=== PATIENT | female | born 1995 | race Caucasian/White ===

== ENCOUNTER → 2016-08-09 | Outpatient (CLI) | payer OTHER ==
[2016-03-03 12:38] VITALS: BP 107/67
[~2016-08-09] MED LIST: POLY119P4 PO; SENN1TAB70 PO
--- NOTE | 2016-08-09 16:32 | RAD ---
Obstetrical ultrasound, 08/09/2016: History: Follow-up There is a single intrauterine fetus present in a cephalic orientation. The biparietal diameter measures 8.1 cm compatible with a gestational age of 32-33 weeks. The femur length measurement suggests a gestational age of 30-31 weeks. The gestational age based on all of the measurements is 31 weeks and 0 days yielding a sonographic EDC of 10/11/2016. This correlates well with the EDC of 10/18/2016 established on the previous ultrasound exam of 03/21/2016. The 10/18/2016 EDC is probably more accurate considering the stage in the at which it was obtained. The head to abdominal circumference ratio is within normal limits. Normal activity and heart motion is seen. The heart rate is 136 bpm. The stomach and bladder contain fluid. No specific abnormality is detected. The placenta lies anteriorly with extension laterally to the right. There is no evidence of a placenta previa. The amniotic fluid index was calculated at 22.9 which suggests mild polyhydramnios. The cervix was not clearly delineated, however, its length was estimated at 2.7 cm. IMPRESSION: 1. Single viable intrauterine fetus of 30-31 weeks gestational age, demonstrating normal interval growth since 03/21/2016. 2. Mild polyhydramnios. 3. Short appearing cervix measuring 2.7 cm. 4. Sonographic follow-up to include translabial scanning for better delineation of the cervix is suggested. Note: The electrophysiology technologist called these findings to the ordering physician's office at 4:20 PM on 08/09/2016.
== END | disposition home or self-care (01) ==
LOC: US 15:04
PROVIDERS: ATTEND Family Medicine
DX: Z34.93 Encounter for supervision of normal pregnancy, unspecified, third trimester (principal); O40.3XX0 Polyhydramnios, third trimester, not applicable or unspecified; Z3A.31 31 weeks gestation of pregnancy
CPT/HCPCS: 76805

== ENCOUNTER → 2016-08-30 | Outpatient (CLI) | payer OTHER ==
[2016-03-03 12:38] VITALS: BP 107/67
--- NOTE | 2016-08-30 16:54 | RAD ---
Obstetrical ultrasound-limited, 08/30/2016: History: Short cervix Transabdominal and transvaginal scans were obtained. The cervix was best delineated on the transvaginal views. The cervical length measurements range from 3.0 to 3.5 cm. No funneling of fluid into the cervical canal is seen. The fetus was not examined at this time. IMPRESSION: The cervical length is at the lower limits of normal as described above.
== END | disposition home or self-care (01) ==
LOC: US 14:50
PROVIDERS: ATTEND Family Medicine
DX: Z03.75 Encounter for suspected cervical shortening ruled out (principal)
CPT/HCPCS: 76805; 76817

== ENCOUNTER 2016-10-16 11:57 | Inpatient (IN) | payer OTHER ==
[~2016-10-16] VITALS: Ht 167.6 cm; Wt 77.6 kg
[2016-10-16] MEDS ORDERED: IV RINGERS,LACTATED 1000ML 1,000 ML IV SCH ×2 (14:54→18:43)
[2016-10-16] MEDS ORDERED: OXYTOCIN 30 UNIT/500 ML PREMIX 500 ML IV PRN (15:00)
[2016-10-16] MEDS ORDERED: TERBUTALINE 1 MG/ML VIAL. SQ PRN (15:00)
[2016-10-16] MEDS ORDERED: LIDOCAINE 1% PF 30 ML VIAL. INJ PRN (15:00)
[2016-10-16] MEDS ORDERED: 0.9 % SODIUM CHLORIDE 10 ML DISP.SYRIN. IV PRN (15:00)
[2016-10-16] MEDS ORDERED: BUTORPHANOL 2 MG VIAL. IV PRN (15:00)
[2016-10-16] MEDS ORDERED: AMPICILLIN 2 GM in IV NORMAL SALINE 100ML 100 ML IV ONE (15:30)
[2016-10-16 15:34] LABS: HEMATOCRIT 32.4 % (36.0-47.0); HEMOGLOBIN 10.8 g/dL (12.0-15.5); RED BLOOD COUNT 3.73 x10^6/uL (3.50-5.40); WHITE BLOOD COUNT 11.3 x10^3/uL (4.0-11.0)
[2016-10-16 15:47] VITALS: BP 128/74
[2016-10-16] MEDS: FENTANYL PF 100 MCG/2 ML VIAL. IV PRN ×2 (16:35→17:45)
--- NOTE | 2016-10-16 16:36 | PDOC1 ---
OB - History Hx of Present Care: Limited Care Ultrasounds: Normal mid trimester US Obstetrical Complications: None Medical Complications: None Other Concerns: Rh-, Mild oligohydramnios Past Family/Social History * Past Medical, Surgical, Family and Obstetric Histories reviewed from chart. Blood Type: A- Rubella: Immune RPR/VDRL: Negative GBS Status: Positive HBsAG: Negative OB - Chief Complaint & HPI Date of Admission: Date of Admission: Oct 16, 2016 at 11:57 Chief Complaint/History : 1 Para: 0 EDC: Oct 18, 2016 Reason for admission: active labor Admission Nurse Assessment Rev: No Problems: OB - Admission Exam Physical Exam Vitals: VS - Last 72 Hours, by Label Date Time Temp Pulse Resp B/P Pulse Ox O2 Delivery O2 Flow Rate FiO2 10/16/16 15:47 98.1 90 20 128/74 98.1 HEENT: Normal, Nasal Mucosa Normal, Oropharynx Normal, Moist Membranes, Fontanelles Normal Heart: Regular Rate Lungs: Clear, Equal Abdomen: Gravid Extremities: Normal Pulses, No tenderness or swelling Reflexes: Normal Cervical Dilatation: 4cm Effacement: Other (80%) Station: -2 Membranes: Intact Amniotic Fluid: Clear (AROM) Heart Rate: Normal Accelerations: Accelerations Present Decelerations: No decelerations Short Term Variability: Present Digital Court Reporter Variability: Moderate Contractions on Admission: 6-10 Minutes Apart Date/Time Contractions Began;: 10/16/16 Frequency of Contractions: 0830 Intensity: Moderate A/P Pt is a 20yo at 39.5wga admitted in active labor 1)Active Labor- CEFM. Pt is interested in IV pain medication 2)GBS+ Ampicillin 3)Rh negative Problems: PARAG AKBAR MD Oct 16, 2016 16:36
[2016-10-16] MEDS ORDERED: L&D EPIDURAL CASSETTE 100 ML PUMP.RESVR. EP ONE (18:00)
[2016-10-16] MEDS ORDERED: ROPIVacaine 0.2% IN 0.9%NACL PF 40 MG/20 ML DISP.SYRIN. ONE ×2 (18:00→18:08)
[2016-10-16] MEDS ORDERED: OXYTOCIN in NORMAL SALINE PREMIX 30 UNIT/500 ML BAG. IV ONE (18:00)
[2016-10-16] MEDS ORDERED: L&D EPIDURAL CASSETTE 100 ML EP ONE (18:08)
[2016-10-16] MEDS ORDERED: L&D EPIDURAL CASSETTE 100 ML EP PRN (18:45)
[2016-10-16] MEDS ORDERED: NALOXONE 0.4 MG/ML VIAL. IV PRN (18:45)
[2016-10-16] MEDS ORDERED: ROPIVacaine 0.2% IN 0.9%NACL PF 40 MG/20 ML DISP.SYRIN. EPI PRN (18:45)
[2016-10-16] MEDS ORDERED: EPHEDRINE PF IN SALINE 50 MG/5 ML DISP.SYRIN. IV PRN (18:45)
[2016-10-16] MEDS ORDERED: AMPICILLIN 1 GM in IV NORMAL SALINE 50ML 50 ML IV SCH (19:30)
--- NOTE | 2016-10-16 23:11 | PDOC ---
VAGINAL DELIVERY DATE DATE: 10/16/16 TIME 2248 : 1 Para: 1 EDC: Oct 18, 2016 EGA: 39.5 VAGINAL DELIVERY: VTX PLACENTA: Spontaneous 8/9 SEX: Male WEIGHT Weight 8 pounds 4oz, 3760g Nuchal Cord: No Amniotic Fluid: Clear PAIN: Epidural EPISIOTOMY: No EXTENSION: Yes (3rd degree perianal) REPAIRED WITH 3'0" vicryl EBL 350cc COMPLICATIONS None CONDITION Stable TRAVEL CONSULTANT Dr. Akbar Signs of Intrauterine Infectio: None Shoulder Dystocia: No DIAGNOSIS Pt is a 20yo [id number] s/p at 39.5wga 1) 2)GBS+ s/p Ampicillin 3)Rh negative Problems: PARAG AKBAR MD Oct 16, 2016 23:10
[2016-10-17] MEDS: IBUPROFEN 600 MG TABLET. PO PRN ×2 (01:55→16:45)
[2016-10-17] MEDS ORDERED: SIMETHICONE 80 MG TAB.CHEW PO PRN (02:00)
[2016-10-17] MEDS ORDERED: HYDROCORTISONE 1% TOPICAL OINTMENT 30GM TUBE. TP PRN (02:00)
[2016-10-17] MEDS ORDERED: BENZOCAINE 20% TOPICAL AEROSOL SPRAY 57GM CAN. TP PRN (02:00)
[2016-10-17] MEDS ORDERED: OXYCODONE/APAP 5/325 TABLET. PO PRN (02:00)
[2016-10-17] MEDS ORDERED: MAG HYDROX/ALUMINUM HYD/SIMETH 30 ML ORAL.SUSP PO PRN (02:00)
[2016-10-17] MEDS ORDERED: MMR per PROTOCOL. MC PRN (02:00)
[2016-10-17] MEDS ORDERED: 0.9 % SODIUM CHLORIDE 10 ML DISP.SYRIN. IV PRN (02:00)
[2016-10-17] MEDS ORDERED: ZOLPIDEM 5 MG TABLET. PO PRN (02:00)
[2016-10-17] MEDS ORDERED: DOCUSATE SODIUM 100 MG CAPSULE PO PRN (02:00)
[2016-10-17] MEDS ORDERED: MAGNESIUM HYDROXIDE 2,400 MG/30 ML ORAL.SUSP. PO PRN (02:00)
[2016-10-17] MEDS ORDERED: ACETAMINOPHEN 325 MG TABLET. PO PRN (02:00)
[2016-10-17] MEDS ORDERED: OXYTOCIN 30 UNIT/500 ML PREMIX 500 ML IV PRN (02:00)
[2016-10-17] MEDS ORDERED: PHENYLEPH/MINERAL OIL/PETROLAT RECTAL OINTMENT 28GM TUBE. RC PRN (02:00)
[2016-10-17] MEDS ORDERED: DIPHENHYDRAMINE HCL 25 MG CAPSULE PO PRN (02:00)
[2016-10-17 02:15] VITALS: BP 124/69
[2016-10-17 03:24] VITALS: BP 112/52
[2016-10-17 04:35] LABS: BASO % 0 % (0-3); EOS % 0 % (0-3); HEMATOCRIT 26.6 % (36.0-47.0); HEMOGLOBIN 8.9 g/dL (12.0-15.5); LYMPH # 1.8 x10^3/uL (1.0-4.8); LYMPH % 12 % (24-48); MEAN CORPUSCULAR HEMOGLOBIN 29 pg (25-35); MEAN CORPUSCULAR HGB CONC 34 g/dL (31-37); MEAN CORPUSCULAR VOLUME 86 fL (79-100); MONO % 10 % (0-9); NEUT % 78 % (31-73); PLATELET COUNT 160 x10^3/uL (140-400); RED BLOOD COUNT 3.08 x10^6/uL (3.50-5.40); WHITE BLOOD COUNT 15.2 x10^3/uL (4.0-11.0)
[2016-10-17] MEDS: OXYCODONE/APAP 5/325 TABLET. PO PRN (05:34)
[2016-10-17 05:40] VITALS: BP 109/53
[2016-10-17] MEDS: FERROUS SULFATE 325 MG TABLET PO SCH (08:07)
[2016-10-17 10:10] VITALS: BP 121/68
--- NOTE | 2016-10-17 15:11 | PDOC ---
OB Progress Note Date of Service 10/17/16 Time of Evaluation 1445 Date: 10/16/16 Time: 8 Notes Pt states that she is having some pain in her vaginal area. It is tolerable. Having some cramping that is tolerable. She is and not having issues; every 1.5 hours for about 10-15minutes. Vaginal bleeding is more than a period. OB VITAL SIGNS: Temperature (98.4F), Blood Pressure (121/68), Pulse (84), O2 Sat (98) Lab Laboratory Tests Test 10/16/16 15:20 10/17/16 03:38 White Blood Count 11.3x10^3/uL (4.0-11.0) 15.2x10^3/uL (4.0-11.0) Red Blood Count 3.73x10^6/uL (3.50-5.40) 3.08x10^6/uL (3.50-5.40) Hemoglobin 10.8g/dL (12.0-15.5) 8.9g/dL (12.0-15.5) Hematocrit 32.4% (36.0-47.0) 26.6% (36.0-47.0) Mean Corpuscular Volume 87fL (79-100) 86fL (79-100) Mean Corpuscular Hemoglobin 29pg (25-35) 29pg (25-35) Mean Corpuscular Hemoglobin Concent 33g/dL (31-37) 34g/dL (31-37) Red Cell Distribution Width 14.0% (11.5-14.5) 14.0% (11.5-14.5) Platelet Count 172x10^3/uL (140-400) 160x10^3/uL (140-400) RPR Titer Additional Testing Non reactive (Non Reactive) Neutrophils (%) (Auto) 78% (31-73) Lymphocytes (%) (Auto) 12% (24-48) Monocytes (%) (Auto) 10% (0-9) Eosinophils (%) (Auto) 0% (0-3) Basophils (%) (Auto) 0% (0-3) Neutrophils # (Auto) 11.9x10^3uL (1.8-7.7) Lymphocytes # (Auto) 1.8x10^3/uL (1.0-4.8) Monocytes # (Auto) 1.5x10^3/uL (0.0-1.1) Eosinophils # (Auto) 0.1x10^3/uL (0.0-0.7) Basophils # (Auto) 0.0x10^3/uL (0.0-0.2) Laboratory Tests Test 10/16/16 15:20 10/17/16 03:38 White Blood Count 11.3x10^3/uL (4.0-11.0) 15.2x10^3/uL (4.0-11.0) Red Blood Count 3.73x10^6/uL (3.50-5.40) 3.08x10^6/uL (3.50-5.40) Hemoglobin 10.8g/dL (12.0-15.5) 8.9g/dL (12.0-15.5) Hematocrit 32.4% (36.0-47.0) 26.6% (36.0-47.0) Mean Corpuscular Volume 87fL (79-100) 86fL (79-100) Mean Corpuscular Hemoglobin 29pg (25-35) 29pg (25-35) Mean Corpuscular Hemoglobin Concent 33g/dL (31-37) 34g/dL (31-37) Red Cell Distribution Width 14.0% (11.5-14.5) 14.0% (11.5-14.5) Platelet Count 172x10^3/uL (140-400) 160x10^3/uL (140-400) RPR Titer Additional Testing Non reactive (Non Reactive) Neutrophils (%) (Auto) 78% (31-73) Lymphocytes (%) (Auto) 12% (24-48) Monocytes (%) (Auto) 10% (0-9) Eosinophils (%) (Auto) 0% (0-3) Basophils (%) (Auto) 0% (0-3) Neutrophils # (Auto) 11.9x10^3uL (1.8-7.7) Lymphocytes # (Auto) 1.8x10^3/uL (1.0-4.8) Monocytes # (Auto) 1.5x10^3/uL (0.0-1.1) Eosinophils # (Auto) 0.1x10^3/uL (0.0-0.7) Basophils # (Auto) 0.0x10^3/uL (0.0-0.2) Medications Current Medications Sodium Chloride 3 ml 3 ml QSHIFT PRN IV AFTER MEDS AND BLOOD DRAWS; Start 10/16 at 15:00 Lactated Ringer's (Iv Lactated Ringers) 1,000 ml @ 125 mls/hr Q8H IV Last administered on 10/16/16 15:23; Start 10/16/16 at 14:54 Butorphanol Tartrate (Stadol) 2 mg PRN Q1HR PRN IV Severe labor pain; Start at 15:00 Fentanyl Citrate (Fentanyl 2ml Vial) 100 mcg PRN Q30MIN PRN IV Severe pain Last administered on 10/16/16 17:45; Start 10/16/16 at 15:00 Terbutaline Sulfate (Brethine) 0.25 mg 1X PRN PRN SQ SEE COMMENTS; Start at 15:00; Stop 10/17/16 at 14:59; Status DC Lidocaine HCl 30 ml 30 ml 1X PRN PRN INJ SEE COMMENTS; Start 10/16/16 at 15:00 ; Stop 10/18/16 at 14:59 Ampicillin Sodium 2 gm/Sodium Chloride 100 ml @ 200 mls/hr 1X ONCE IV Last administered on 10/16/16 15:20; Start 10/16/16 at 15:30; Stop 10/16/16 at 15:59 ; Status DC Ampicillin Sodium 1 gm/Sodium Chloride 50 ml @ 100 mls/hr Q4H IV Last administered on 10/16/16 19:43; Start 10/16/16 at 19:30 Oxytocin/Sodium Chloride (Oxytocin Premix Infusion) 500 ml @ 0 mls/hr CONT PRN PRN IV Post delivery bleeding; Start 10/16/16 at 15:00 Ibuprofen 600 mg 600 mg PRN Q6HRS PRN PO PAIN Last administered on 10/17/16 01 :55; Start 10/16/16 at 15:00 Ropivacaine/ Fentanyl/NS (Fsnsflla-Vmjja-OE 3 Mcg-0.1%) 100 ml @ As Directed STK-MED ONCE EP ; Start 10/16/16 at 18:08; Stop 10/16/16 at 18:09; Status DC Ropivacaine 40 mg 40 mg STK-MED ONCE .ROUTE ; Start 10/16/16 at 18:08; Stop at 18:09; Status DC Ropivacaine/ Fentanyl/NS 100 ml @ 14 mls/hr CONT PRN EP PAIN; Start 10/16/16 at 18:45; Stop 10/17/16 at 17:44 Lactated Ringer's (Iv Lactated Ringers) 1,000 ml @ 125 mls/hr Q8H IV Last administered on 10/16/16t 19:04; Start 10/16/16 at 18:43 Ephedrine Sulfate 10 mg PRN Q2MIN PRN IV IF SBP<90; Start 10/16/16 at 18:45 Naloxone HCl (Narcan) 0.04 mg PRN Q1MIN PRN IV SEE COMMENTS; Start 10/16/16 at 18:45 Ropivacaine 40 mg PRN 1X PRN EPI SEE COMMENTS; Start 10/16/16 at 18:45 Sodium Chloride 10 ml 10 ml QSHIFT PRN IV AFTER MEDS AND BLOOD DRAWS; Start at 02:00 Oxytocin/Sodium Chloride (Oxytocin Premix Infusion) 500 ml @ 62.5 mls/hr CONT PRN IV SEE I/O RECORD; Start 10/17/16 at 02:00; Stop 10/17/16 at 09:59; Status DC Acetaminophen (Tylenol) 650 mg PRN Q6HRS PRN PO MILD PAIN / TEMP; Start at 02:00 Docusate Sodium (Colace) 100 mg PRN BID PRN PO CONSTIPATION; Start 10/17/16 at 02:00 Magnesium Hydroxide (Milk Of Magnesia) 2,400 mg PRN DAILY PRN PO CONSTIPATION; Start 10/17/16 at 02:00 Al Hydroxide/Mg Hydroxide (Mylanta Plus Xs) 30 ml PRN Q4HRS PRN PO HEARTBURN / GAS; Start 10/17/16 at 02:00 Simethicone (Gas-X) 80 mg PRN AFTMEALHC PRN PO GAS / BLOATING; Start 10/17/16 at 02:00 Diphenhydramine HCl (Benadryl) 25 mg PRN Q6HRS PRN PO ITCHING; Start 10/17/16 at 02:00 Benzocaine (Americaine) 1 spray PRN QID PRN TP TOPICAL PAIN; Start 10/17/16 at 02:00 Phenyleph/Shark Oil/Min Oil/Petrol (Preparation H) 1 quita PRN QID PRN RC RECTAL PAIN; Start 10/17/16 at 02:00 Hydrocortisone (Cortaid) 1 quita PRN QID PRN TP PERINEAL PAIN; Start 10/17/16 at 02:00 Ferrous Sulfate (Feosol) 325 mg BIDWMEALS PO Last administered on 10/17/16t 08: 07; Start 10/18/16 at 08:00 Zolpidem Tartrate (Ambien) 5 mg PRN QHS PRN PO INSOMNIA, MAY REPEAT X1; Start 10/17/16 at 02:00 Info (Do NOT chart on this placeholder) 1 ea 1X PRN PRN MC SEE COMMENTS; Start 10/17/16 at 02:00 Info (Do NOT chart on this placeholder) 1 ea 1X PRN PRN MC SEE COMMENTS; Start 10/17/16 at 02:00 Oxycodone/ Acetaminophen (Percocet 5/325) 1 tab PRN Q4HRS PRN PO MILD PAIN Last administered on 10/17/16t 05:34; Start 10/17/16 at 02:00 Oxycodone/ Acetaminophen (Percocet 5/325) 2 tab PRN Q4HRS PRN PO MODERATE PAIN , SEVERE PAIN; Start 10/17/16 at 02:00; Stop 10/17/16 at 14:52; Status DC Ropivacaine 40 mg STK-MED ONCE .ROUTE ; Start 10/16/16 at 18:00; Stop 10/17/16 at 08:04; Status DC Ropivacaine/ Fentanyl/NS (Drlfxzfp-Mtpyg-TG 3 Mcg-0.1%) 100 ml STK-MED ONCE EP ; Start 10/16/16 at 18:00; Stop 10/17/16 at 08:15; Status DC Oxytocin/Sodium Chloride (Oxytocin Premix Infusion) 30 unit STK-MED ONCE IV ; Start 10/16/16 at 18:00; Stop 10/17/16 at 08:15; Status DC Active Scripts Active Miralax (Polyethylene Glycol 3350) 119 Gm Powder 17 Gm PO DAILY PRN Reported Stool Softener Tablet (Sennosides/Docusate Sodium) 1 Each Tablet 1 Each PO BID Exam GEN: NAD, AOx3 HEENT: MMM, EOMI, no scleral icterus/injection Cardiac: RRR, no M/R/G Lungs: CTAB, regular breathing rate and effort Abd: NTTP Ext: no erythema/edema LE bilaterally : 3rd degree perianal laceration healing well Assessment Pt is a 20yo [id number] s/p at 39.5wga 1)- pt receiving Ibuprofen and Oxycodone/APAP for pain 2)GBS+ s/p Ampicillin 3)Rh negative- will receive Rhogam prior to discharge 4)3rd degree perianal laceration- f/u 2 weeks 5)Anemia- pt receiving Ferrous Sulfate 6)Leukocytosis- pt afebrile and has no signs of infection. CTM 7) PARAG AKBAR MD Oct 17, 2016 15:11
[2016-10-17] MEDS ORDERED: POLYETHYLENE GLYCOL 3350 17 GM PACKET. PO PRN (15:15)
[2016-10-17 16:45] VITALS: BP 118/64
[2016-10-17 23:28] VITALS: BP 116/76
[2016-10-18] MEDS: IBUPROFEN 600 MG TABLET. PO PRN ×2 (01:10→13:56)
[2016-10-18 06:44] VITALS: BP 117/78
[2016-10-18 13:21] VITALS: BP 112/68
--- NOTE | 2016-10-18 17:02 | PDOC ---
OB Progress Note Date of Service 10/18/16 Time of Evaluation 1630 Date: 10/16/16 Time: 8 Notes Pt had a blood clot about the size of a quarter earlier today. Her bleeding is still more than a period but better than yesterday. She is concerned that she is not producing enough milk; reassured mom that her milk will likely come in in the next 24-48 hours. OB VITAL SIGNS: Temperature (98.3F), Blood Pressure (112/68), Pulse (82), O2 Sat (98%) Lab Laboratory Tests Test 10/17/16 03:38 White Blood Count 15.2x10^3/uL (4.0-11.0) Red Blood Count 3.08x10^6/uL (3.50-5.40) Hemoglobin 8.9g/dL (12.0-15.5) Hematocrit 26.6% (36.0-47.0) Mean Corpuscular Volume 86fL (79-100) Mean Corpuscular Hemoglobin 29pg (25-35) Mean Corpuscular Hemoglobin Concent 34g/dL (31-37) Red Cell Distribution Width 14.0% (11.5-14.5) Platelet Count 160x10^3/uL (140-400) Neutrophils (%) (Auto) 78% (31-73) Lymphocytes (%) (Auto) 12% (24-48) Monocytes (%) (Auto) 10% (0-9) Eosinophils (%) (Auto) 0% (0-3) Basophils (%) (Auto) 0% (0-3) Neutrophils # (Auto) 11.9x10^3uL (1.8-7.7) Lymphocytes # (Auto) 1.8x10^3/uL (1.0-4.8) Monocytes # (Auto) 1.5x10^3/uL (0.0-1.1) Eosinophils # (Auto) 0.1x10^3/uL (0.0-0.7) Basophils # (Auto) 0.0x10^3/uL (0.0-0.2) Medications Current Medications Sodium Chloride 3 ml 3 ml QSHIFT PRN IV AFTER MEDS AND BLOOD DRAWS; Start 10/16 at 15:00; Stop 10/18/16 at 09:23; Status DC Lactated Ringer's (Iv Lactated Ringers) 1,000 ml @ 125 mls/hr Q8H IV Last administered on 10/16/16 15:23; Start 10/16/16 at 14:54; Stop 10/18/16 at 09:23 ; Status DC Butorphanol Tartrate (Stadol) 2 mg PRN Q1HR PRN IV Severe labor pain; Start at 15:00; Stop 10/18/16 at 09:23; Status DC Fentanyl Citrate (Fentanyl 2ml Vial) 100 mcg PRN Q30MIN PRN IV Severe pain Last administered on 10/16/16 17:45; Start 10/16/16 at 15:00; Stop 10/18/16 at 09:23; Status DC Terbutaline Sulfate (Brethine) 0.25 mg 1X PRN PRN SQ SEE COMMENTS; Start at 15:00; Stop 10/17/16 at 14:59; Status DC Lidocaine HCl 30 ml 30 ml 1X PRN PRN INJ SEE COMMENTS; Start 10/16/16 at 15:00 ; Stop 10/18/16 at 09:23; Status DC Ampicillin Sodium 2 gm/Sodium Chloride 100 ml @ 200 mls/hr 1X ONCE IV Last administered on 10/16/16 15:20; Start 10/16/16 at 15:30; Stop 10/16/16 at 15:59 ; Status DC Ampicillin Sodium 1 gm/Sodium Chloride 50 ml @ 100 mls/hr Q4H IV Last administered on 10/16/16 19:43; Start 10/16/16 at 19:30; Stop 10/18/16 at 09:23 ; Status DC Oxytocin/Sodium Chloride (Oxytocin Premix Infusion) 500 ml @ 0 mls/hr CONT PRN PRN IV Post delivery bleeding; Start 10/16/16 at 15:00; Stop 10/18/16 at 09:23; Status DC Ibuprofen 600 mg 600 mg PRN Q6HRS PRN PO PAIN Last administered on 10/18/16 13 :56; Start 10/16/16 at 15:00 Ropivacaine/ Fentanyl/NS (Lolvcfzd-[place] 3 Mcg-0.1%) 100 ml @ As Directed STK-MED ONCE EP ; Start 10/16/16 at 18:08; Stop 10/16/16 at 18:09; Status DC Ropivacaine 40 mg 40 mg STK-MED ONCE .ROUTE ; Start 10/16/16 at 18:08; Stop at 18:09; Status DC Ropivacaine/ Fentanyl/NS 100 ml @ 14 mls/hr CONT PRN EP PAIN; Start 10/16/16 at 18:45; Stop 10/17/16 at 17:44; Status DC Lactated Ringer's (Iv Lactated Ringers) 1,000 ml @ 125 mls/hr Q8H IV Last administered on 10/16/16t 19:04; Start 10/16/16 at 18:43; Stop 10/18/16 at 09:23 ; Status DC Ephedrine Sulfate 10 mg PRN Q2MIN PRN IV IF SBP<90; Start 10/16/16 at 18:45; Stop 10/18/16 at 09:23; Status DC Naloxone HCl (Narcan) 0.04 mg PRN Q1MIN PRN IV SEE COMMENTS; Start 10/16/16 at 18:45; Stop 10/18/16 at 09:23; Status DC Ropivacaine 40 mg PRN 1X PRN EPI SEE COMMENTS; Start 10/16/16 at 18:45; Stop at 09:23; Status DC Sodium Chloride 10 ml 10 ml QSHIFT PRN IV AFTER MEDS AND BLOOD DRAWS; Start at 02:00; Stop 10/18/16 at 09:23; Status DC Oxytocin/Sodium Chloride (Oxytocin Premix Infusion) 500 ml @ 62.5 mls/hr CONT PRN IV SEE I/O RECORD; Start 10/17/16 at 02:00; Stop 10/17/16 at 09:59; Status DC Acetaminophen (Tylenol) 650 mg PRN Q6HRS PRN PO MILD PAIN / TEMP; Start at 02:00 Docusate Sodium (Colace) 100 mg PRN BID PRN PO CONSTIPATION; Start 10/17/16 at 02:00 Magnesium Hydroxide (Milk Of Magnesia) 2,400 mg PRN DAILY PRN PO CONSTIPATION; Start 10/17/16 at 02:00 Al Hydroxide/Mg Hydroxide (Mylanta Plus Xs) 30 ml PRN Q4HRS PRN PO HEARTBURN / GAS; Start 10/17/16 at 02:00 Simethicone (Gas-X) 80 mg PRN AFTMEALHC PRN PO GAS / BLOATING; Start 10/17/16 at 02:00 Diphenhydramine HCl (Benadryl) 25 mg PRN Q6HRS PRN PO ITCHING; Start 10/17/16 at 02:00 Benzocaine (Americaine) 1 spray PRN QID PRN TP TOPICAL PAIN; Start 10/17/16 at 02:00 Phenyleph/Shark Oil/Min Oil/Petrol (Preparation H) 1 quita PRN QID PRN RC RECTAL PAIN; Start 10/17/16 at 02:00; Stop 10/18/16 at 09:23; Status DC Hydrocortisone (Cortaid) 1 quita PRN QID PRN TP PERINEAL PAIN; Start 10/17/16 at 02:00 Ferrous Sulfate (Feosol) 325 mg BIDWMEALS PO Last administered on 10/17/16t 08: 07; Start 10/18/16 at 08:00 Zolpidem Tartrate (Ambien) 5 mg PRN QHS PRN PO INSOMNIA, MAY REPEAT X1; Start 10/17/16 at 02:00 Info (Do NOT chart on this placeholder) 1 ea 1X PRN PRN MC SEE COMMENTS; Start 10/17/16 at 02:00; Stop 10/18/16 at 09:23; Status DC Info (Do NOT chart on this placeholder) 1 ea 1X PRN PRN MC SEE COMMENTS; Start 10/17/16 at 02:00; Stop 10/18/16 at 09:23; Status DC Oxycodone/ Acetaminophen (Percocet 5/325) 1 tab PRN Q4HRS PRN PO MILD PAIN Last administered on 10/17/16t 05:34; Start 10/17/16 at 02:00 Oxycodone/ Acetaminophen (Percocet 5/325) 2 tab PRN Q4HRS PRN PO MODERATE PAIN , SEVERE PAIN; Start 10/17/16 at 02:00; Stop 10/17/16 at 14:52; Status DC Ropivacaine 40 mg STK-MED ONCE .ROUTE ; Start 10/16/16 at 18:00; Stop 10/17/16 at 08:04; Status DC Ropivacaine/ Fentanyl/NS (Ybrmxjez-Szyrx-UA 3 Mcg-0.1%) 100 ml STK-MED ONCE EP ; Start 10/16/16 at 18:00; Stop 10/17/16 at 08:15; Status DC Oxytocin/Sodium Chloride (Oxytocin Premix Infusion) 30 unit STK-MED ONCE IV ; Start 10/16/16 at 18:00; Stop 10/17/16 at 08:15; Status DC Polyethylene Glycol (miraLAX PACKET) 17 gm PRN DAILY PRN PO CONSTIPATION; Start 10/17/16 at 15:15; Stop 10/18/16 at 09:23; Status DC Active Scripts Active Miralax (Polyethylene Glycol 3350) 119 Gm Powder 17 Gm PO DAILY PRN Reported Stool Softener Tablet (Sennosides/Docusate Sodium) 1 Each Tablet 1 Each PO BID Exam GEN: NAD, AOx3 HEENT: MMM, EOMI, no scleral icterus/injection Cardiac: RRR, no M/R/G Lungs: CTAB, regular breathing rate and effort Abd: NTTP Ext: no erythema/edema LE bilaterally : 3rd degree perianal laceration healing well Assessment Pt is a 20yo [id number] s/p at 39.5wga 1)- pt receiving Ibuprofen and Oxycodone/APAP for pain 2)GBS+ s/p Ampicillin 3)Rh negative- will receive Rhogam prior to discharge 4)3rd degree perianal laceration- f/u 2 weeks 5)Anemia- pt receiving Ferrous Sulfate 6)Leukocytosis- pt afebrile and has no signs of infection. CTM 7) PARAG AKBAR MD Oct 18, 2016 17:02
[2016-10-18 17:25] VITALS: BP 117/69
[2016-10-18] MEDS: POLYETHYLENE GLYCOL 3350 17 GM PACKET. PO SCH (19:52)
[2016-10-18 23:07] VITALS: BP 120/78
[2016-10-19 06:21] VITALS: BP 117/78
[2016-10-19] MEDS: IBUPROFEN 600 MG TABLET. PO PRN (08:56)
[2016-10-19] MEDS: OXYCODONE/APAP 5/325 TABLET. PO PRN ×2 (08:56→15:20)
[2016-10-19] MEDS: POLYETHYLENE GLYCOL 3350 17 GM PACKET. PO SCH (08:56)
[2016-10-19 09:46] VITALS: BP 114/61
[2016-10-19 09:54] VITALS: BP 114/61
[2016-10-19 14:45] VITALS: BP 116/72
[2016-10-19] MEDS ORDERED: FERR325T72 PO (14:55)
[2016-10-19] MEDS ORDERED: IBUP-1007 PO (14:55)
[2016-10-19] MEDS ORDERED: OXYC1TAB7 PO (14:55)
--- NOTE | 2016-10-19 15:00 | PDOC3 ---
OB DISCHARGE SUMMARY DATE OF ADMISSION: 10/16/16 DATE OF DISCHARGE: 10/19/16 REASON FOR ADMISSION: Onset of labor PROCEDURES: Ultrasound PROCEDURES: RHO (D) IG PROBLEM LIST AT DISCHARGE Problems Medical Problems: (1) Vaginal delivery Status: Acute DISCHARGE DIAGNOSIS: Term Delivered DISCHARGE INFORMATION: Activity (as tolerated), Diet (Reguler), Medications ( Ibuprofen, Oxycodone/Acetaminophen 5/325mg, Miralax), Instructions (Please follow up with Dr. Akbar in 2 weeks to re-evaluate your laceration repair. Please consider different control options), Discharge to (Home), Accompanied By (Father of baby) HOSPITAL COURSE Exam GEN: NAD, AOx3 HEENT: MMM, EOMI, no scleral icterus/injection Cardiac: RRR, no M/R/G Lungs: CTAB, regular breathing rate and effort Abd: NTTP Ext: no erythema/edema LE bilaterally : 3rd degree perianal laceration healing well Pt is a 20yo [id number] s/p at 39.5wga 1)- pt receiving Ibuprofen and Oxycodone/APAP for pain 2)GBS+ s/p Ampicillin 3)Rh negative- received Rhogam prior to discharge 4)3rd degree perianal laceration- f/u 2 weeks 5)Anemia- pt receiving Ferrous Sulfate 6)Leukocytosis- pt afebrile and has no signs of infection 7) 8) control- pt interested in BTL at this time. Discussed considering different options, such as Mirena. Will investigate further at next visit. PARAG AKBAR MD Oct 19, 2016 15:00
[2016-10-19] MEDS: FERROUS SULFATE 325 MG TABLET PO SCH (15:21)
[2016-10-19 15:35] VITALS: BP 115/65
== END 2016-10-19 15:55 | disposition home or self-care (01) | DRG 775 ==
LOC: OBSVTOIN 11:57 → 3 SO LND 11:57
PROVIDERS: ADMIT Family Medicine; ATTEND Family Medicine
PROC: 10907ZC Drainage of Amniotic Fluid, Therapeutic from Products of Conception, Via Natural or Artificial Opening (ICD-10-PCS; principal; 2016-10-16)
PROC: 10E0XZZ Delivery of Products of Conception, External Approach (ICD-10-PCS; 2016-10-16)
PROC: 0DQR0ZZ Repair Anal Sphincter, Open Approach (ICD-10-PCS; 2016-10-16)
PROC: 3E0S3CZ (ICD-10-PCS; 2016-10-16)
PROC: 00HU33Z Insertion of Infusion Device into Spinal Canal, Percutaneous Approach (ICD-10-PCS; 2016-10-16)
PROC: 30233S1 Transfusion of Nonautologous Globulin into Peripheral Vein, Percutaneous Approach (ICD-10-PCS; 2016-10-19)
DX: O41.03X0 Oligohydramnios, third trimester, not applicable or unspecified (principal); O99.12 Other diseases of the blood and blood-forming organs and certain disorders involving the immune mechanism complicating childbirth; O70.20 Third degree perineal laceration during delivery, unspecified; Z3A.39 39 weeks gestation of pregnancy; Z37.0 Single live birth; O99.824 Streptococcus B carrier state complicating childbirth; O99.02 Anemia complicating childbirth; D72.829 Elevated white blood cell count, unspecified; Z88.1 Allergy status to other antibiotic agents; Z88.0 Allergy status to penicillin
CPT/HCPCS: 36415; 85027; 85461; 86593; 86850; 86900; 86901; G0378; J0290; J2590; J2791; J2795; J3010; J7120

== ENCOUNTER → 2019-01-26 | Outpatient (CLI) | payer OTHER ==
[~2019-01-26] MED LIST changes: +FERR325T72 PO; +IBUP-1007 PO; +OXYC1TAB7 PO
--- NOTE | 2019-01-26 17:15 | KCIC ---
First trimester ultrasound less than 14 weeks: Clinical indications: Vaginal bleeding one week ago. Findings: Transabdominal study: Uterus is anteverted in position. Within the upper aspect of the uterus, a gestational sac is seen containing a single fetus. heart rate is 153 bpm. Yolk sac is identified. [place]-rump length is 1.04 cm which corresponds to gestational age of 7 weeks 1 day with an EDC of September 13, 2019. Sac shape and amniotic fluid volume: Normal. Placenta location: Indeterminate due to the early stage of gestation. Cervical length: Greater than 3.0 cm. Extrachorionic hemorrhage: There is an inferior subchorionic hemorrhage measuring 27 mm x 9 mm x 20 mm in size. Uterus: No uterine fibroids are seen. Maternal ovaries: Right ovary: 2.6 cm x 1.2 cm x 3.0 cm. Normal. Color-flow Doppler: Present Left ovary: 3.2 cm x 3.3 cm x 1.5 cm. Normal. Color-flow Doppler: Present Adnexa: no adnexal masses are seen. Free fluid: None. Impression: Single intrauterine gestation with approximate gestational age of 7 weeks and 1 day. 27 mm subchorionic hemorrhage. Electronically signed by: Justin Maria MD (01/26/2019 5:12 PM) [id number]
== END | disposition home or self-care (01) ==
LOC: KCIC US 15:17
PROVIDERS: ATTEND Family Medicine
DX: O46.91 Antepartum hemorrhage, unspecified, first trimester (principal); Z3A.01 Less than 8 weeks gestation of pregnancy
CPT/HCPCS: 76801

== ENCOUNTER 2019-03-09 15:56 | Emergency (ER) | payer MEDICAID, OTHER ==
[~2019-03-09] VITALS: Ht 167.6 cm; Wt 68.0 kg
--- NOTE | 2019-03-09 17:42 | RAD ---
Obstetric pelvic ultrasound March 09, 2019 INDICATION: Leaking clear fluid. LMP 12/05/2018 COMPARISON: Ultrasound pelvis January 26, 2019 TECHNIQUE: Sonographic evaluation of the pelvis was performed utilizing grayscale, color Doppler and spectral waveform analysis. FINDINGS: Uterus measures 13.8 x 9.7 x 6.2 cm. Single intrauterine gestation is identified with heart tones measuring 160 bpm. Cervical length measures 3.7 cm. There is no free fluid within the cul-de-sac. Gestational sac is visualized. Embryo is identified with crown-rump length measuring 7.1 cm compatible with a gestational age of 13 weeks and 2 days. Estimated sonographic EDC is 09/12/2019. Previously seen hemorrhage has resolved. Amniotic fluid appears to be within normal limits. LMP: 12/05/2018 EDC: 09/11/2019 Right ovary measures 2.4 x 3.2 x 1.6 cm. Left ovary measures 3.3 x 2.6 x 2.1 cm. Arterial and venous waveform identified bilaterally at the time of imaging. No suspicious adnexal mass. IMPRESSION: Viable intrauterine gestation is identified with crown-rump length compatible with a gestational age of 13 weeks 2 days, concordant with LMP. Resolved previously seen subchorionic hemorrhage. If there is persistent clinical concern, short-term follow-up pelvic ultrasound may be of benefit. Electronically signed by: Sunita Reid MD (03/09/2019 5:40 PM) [facility]
[2019-03-09] MEDS ORDERED: IV NORMAL SALINE 1000ML BAG 1,000 ML IV ONE (17:45)
[2019-03-09 17:48] VITALS: BP 134/71
--- NOTE | 2019-03-09 17:58 | PHYS DOC ---
Past Medical History Past Medical History: Constipation, Other Additional Past Medical Histor: SYNCOPE, hypotension (ELIO WOOD APRN) Past Surgical History: Tonsillectomy (ELIO WOOD APRN) Alcohol Use: None Drug Use: None (ELIO WOOD APRN) Adult General Chief Complaint Chief Complaint: ABDOMINAL PAIN IN HPI HPI Patient is a 23 year old female, accompanied by her significant other, who presents to the emergency Department today with concerns of leaking clear fluid from her vagina. Patient states she is her last menstrual period was the last week of November, patient is 2, para 1. She is unsure of when her due date is. ROS She currently denies any abdominal pain, irregular vaginal odor, vaginal bleeding, pelvic pain, fever, cough, shortness of breath, diarrhea, or headache. She states she has had some constipation, but denies rectal bleeding. She denies any rectal discomfort at this time. (ELIO WOOD APRN) Review of Systems Review of Systems Constitutional: Denies fever or chills [] Eyes: Denies change in visual acuity, redness, or eye pain [] HENT: Denies nasal congestion or sore throat [] Respiratory: Denies cough or shortness of breath [] Cardiovascular: No additional information not addressed in HPI [] GI: Denies abdominal pain, nausea, vomiting, bloody stools or diarrhea [] : Denies dysuria or hematuria [] Musculoskeletal: Denies back pain or joint pain [] Integument: Denies rash or skin lesions [] Neurologic: Denies headache, focal weakness or sensory changes [] Endocrine: Denies polyuria or polydipsia [] All other systems were reviewed and found to be within normal limits, except as documented in this note. (ELIO WOOD APRN) Current Medications Current Medications Current Medications Medications (Trade) Dose Ordered Sig/Naila Start Time Stop Time Status Last Admin Dose Admin Sodium Chloride 1,000 ml @ 1,000 mls/hr 1X ONCE 03/09/19 17:45 03/09/19 18:44 DC 03/09/19 17:45 1,000 MLS/HR (ROEL BRIZUELA MD) Allergies Allergies Allergies Coded Allergies Type Severity Reaction Last Updated Verified amoxicillin Adverse Reaction Intermediate nausea and vomiting 10/17/16 Yes cephalexin Adverse Reaction Intermediate nausea and vomitng 03/03/16 Yes clavulanic acid Adverse Reaction Intermediate nausea and vomiting 10/17/16 Yes (ROEL BRIZUELA MD) Physical Exam Physical Exam Constitutional: Well developed, well nourished, no acute distress, non-toxic appearance. [] HENT: Normocephalic, atraumatic, bilateral external ears normal, nose normal. [] Eyes: PERRLA, EOMI, conjunctiva normal, no discharge. [] Neck: Normal range of motion, no stridor. [] Cardiovascular:Heart rate regular rhythm, no murmur [] Lungs & Thorax: Bilateral breath sounds clear to auscultation [] Abdomen: Bowel sounds normal, soft, no tenderness, no masses, no pulsatile masses. [] Skin: Warm, dry, no erythema, no rash. [] Extremities: No cyanosis, ROM intact, no edema. [] Neurologic: Alert and oriented X 3, no focal deficits noted. [] Psychologic: Affect normal, judgement normal, mood normal. [] (ELIO WOOD APRN) Current Patient Data Vital Signs Vital Signs Date Time Temp Pulse Resp B/P (MAP) Pulse Ox O2 Delivery O2 Flow Rate FiO2 03/09/19 17:48 87 14 134/71 (92) 98 Room Air 03/09/19 16:03 99.2 99.2 (ROEL BRIZUELA MD) Lab Values Laboratory Tests Test 03/09/19 17:49 03/09/19 17:52 Urine Collection Type Void Urine Color Yellow Urine Clarity Turbid Urine pH 8.0 Urine Specific [place] 1.020 Urine Protein Negative mg/dL (NEG-TRACE) Urine Glucose (UA) Negative mg/dL (NEG) Urine Ketones (Stick) Negative mg/dL (NEG) Urine Blood Negative (NEG) Urine Nitrite Negative (NEG) Urine Bilirubin Negative (NEG) Urine Urobilinogen Dipstick 1.0 mg/dL (0.2 mg/dL) Urine Leukocyte Esterase Large (NEG) Urine RBC 0 /HPF (0-2) Urine WBC 1-4 /HPF (0-4) Urine Squamous Epithelial Cells Mod /LPF Urine Amorphous Sediment Present /HPF Urine Bacteria Few /HPF (0-FEW) Urine Mucus Slight /LPF POC Urine HCG, Qualitative Hcg positive (Negative) (ROEL BRIZUELA MD) EKG EKG [] (ELIO WOOD APRN) Radiology/Procedures Radiology/Procedures PROCEDURE: PREG 1ST TRIMESTER Obstetric pelvic ultrasound March 09, 2019 INDICATION: Leaking clear fluid. LMP 12/05/2018 COMPARISON: Ultrasound pelvis January 26, 2019 TECHNIQUE: Sonographic evaluation of the pelvis was performed utilizing grayscale, color Doppler and spectral waveform analysis. FINDINGS: Uterus measures 13.8 x 9.7 x 6.2 cm. Single intrauterine gestation is identified with heart tones measuring 160 bpm. Cervical length measures 3.7 cm. There is no free fluid within the cul-de-sac. Gestational sac is visualized. Embryo is identified with crown-rump length measuring 7.1 cm compatible with a gestational age of 13 weeks and 2 days. Estimated sonographic EDC is 09/12/2019. Previously seen hemorrhage has resolved. Amniotic fluid appears to be within normal limits. LMP: 12/05/2018 EDC: 09/11/2019 Right ovary measures 2.4 x 3.2 x 1.6 cm. Left ovary measures 3.3 x 2.6 x 2.1 cm. Arterial and venous waveform identified bilaterally at the time of imaging. No suspicious adnexal mass. IMPRESSION: Viable intrauterine gestation is identified with crown-rump length compatible with a gestational age of 13 weeks 2 days, concordant with LMP. Resolved previously seen subchorionic hemorrhage. If there is persistent clinical concern, short-term follow-up pelvic ultrasound may be of benefit. [] (ELIO WOOD APRN) Course & Med Decision Making Course & Med Decision Making Pertinent Labs and Imaging studies reviewed. (See chart for details) dx: IUP, hyperemesis gravidarum Patient is a 23-year-old female who presented to the emergency department for concerns of leaking fluid. She reported that her primary care doctor sent her to the hospital for evaluation to be sure that her amniotic fluid was not leaking. Bedside heart tones were in the 180s, an ultrasound revealed normal amniotic fluid levels. [id number] Belen Contreras who reports that the pt came to the office for hyperemesis gravidarum also. Dr. 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 Dr. Contreras would like 1L of fluid to be given to the patient while she is in the ER. Okay to discharge patient if the ultrasound is normal. Have patient follow-up with Dr. Contreras later this week in office. 1800- report to Dr. Brizuela advised of pending UA results. If negative for UTI pt is ok to go home and follow up with Dr. Contreras later this week. (ELIO WOOD APRN) Course & Med Decision Making u/a neg (ROEL BRIZUELA MD) Dragon Disclaimer Dragon Disclaimer This electronic medical record was generated, in whole or in part, using a voice recognition dictation system. (ELIO WOOD APRN) Departure Departure Referrals: PARAG CONTRERAS MD (PCP) ELIO WOOD APRN Mar 09, 2019 17:58 ROEL BRIZUELA MD Mar 10, 2019 00:35
[2019-03-09 18:02] LABS: BILIRUBIN,URINE NEGATIVE (NEG); CLARITY,URINE TURBID; COLOR,URINE YELLOW; NITRITE,URINE NEGATIVE (NEG); PROTEIN,URINE NEGATIVE (NEG-TRACE)
[2019-03-09 18:19] LABS: AMORPHOUS SEDIMENT,UR PRESENT /HPF; BACTERIA,URINE FEW /HPF (0-FEW); RBC,URINE 0 /HPF (0-2); SQUAMOUS EPITHELIAL CELL,UR MOD /LPF
== END 2019-03-09 19:11 | disposition home or self-care (01) ==
LOC: ER 15:56
DX: O21.0 Mild hyperemesis gravidarum (principal); Z3A.13 13 weeks gestation of pregnancy; Z88.1 Allergy status to other antibiotic agents; Z88.8 Allergy status to other drugs, medicaments and biological substances
CPT/HCPCS: 76801; 81001; 81025; 87086; 96360; 99285; J7030

== ENCOUNTER → 2019-05-07 | Outpatient (CLI) | payer MEDICAID ==
--- NOTE | 2019-05-07 16:51 | KCIC ---
EXAM: Obstetrics sonogram. HISTORY: anatomy survey. TECHNIQUE: Sonographic imaging of a gravid uterus was performed. COMPARISON: 12/10/2018. FINDINGS: There is a single intrauterine fetus in cephalic presentation with a heart rate of 135 bpm. There is body motion. There is an anterior placenta without evidence of placenta previa. The amniotic fluid axes normal at 13.2 cm. The cervix is closed and measures 4.75 cm. The biparietal diameter is 4.60 cm, corresponding with 19 weeks and 6 days. The head circumference is 18.34 cm, corresponding with 20 weeks and 5 days. The abdominal circumference is 16.01 cm, corresponding with 21 weeks and 1 day. The femoral length is 3.66 cm, corresponding with 21 weeks and 4 days. The estimated gestational age based on combined ultrasound measurements is 20 weeks and 6 days and the estimated weight is 409 g. The estimated due date is 09/18/2019. The brain, spine, stomach, kidneys, bladder, extremities are unremarkable. There is a three-vessel umbilical cord. The cardiac outflow tracts and facial profile are not well seen due to presentation. IMPRESSION: 1. Single intrauterine fetus with an estimated gestational age of 20 weeks and 6 days and heart rate of 135 bpm. 2. Suboptimal evaluation of the facial profile and cardiac outflow tracts due to presentation. Short-term follow-up can be performed to complete an otherwise unremarkable anatomy survey. Electronically signed by: Juany Winn MD (05/07/2019 4:49 PM) [facility]
== END | disposition home or self-care (01) ==
LOC: KCIC US 15:15
PROVIDERS: ATTEND Family Medicine
DX: O26.892 Other specified pregnancy related conditions, second trimester (principal); Z3A.20 20 weeks gestation of pregnancy
CPT/HCPCS: 76805

== ENCOUNTER → 2019-07-13 | Outpatient (CLI) | payer MEDICAID ==
--- NOTE | 2019-07-16 17:53 | KCIC ---
Examination: PREG MORE THAN OR EQ TO 14 WKS History: Anatomic survey scan follow-up Comparison/Correlation: 05/07/2019 ultrasound exam Findings: Single living intrauterine gestation is present with heart rate of 136 bpm. movement is evident. Cephalic lie. Four-chamber heart identified. Placenta have the anterior wall is present. Biparietal diameter is 7.68 cm corresponding to 30 weeks 6 day. It circumference is 20.63 cm corresponding to 31 weeks 3 days. Abdominal circumference is 26.92 cm corresponding to 31 weeks 0 day. Femur length is 6.15 cm corresponding to 31 weeks 6 days. Head circumference to abdominal circumference ratio is 1.06. Estimated weight is 1743 g. This is at the 44th percentile. Gestational age by 4 parameters is 31 weeks 2 days. Ultrasound EDC is 09/12/2019. Cardiac outflow tracts are unremarkable. Facial profile is unremarkable. Uterine cervical length is 4.12 cm. Impression: Single living intrauterine gestation with average ultrasound age of 31 weeks 2 days. Adequate interval growth since the prior ultrasound exam. Average ultrasound age is 1 day less than age by LMP. Electronically signed by: Ruslan Ramirez MD (07/16/2019 5:50 PM) [facility]
== END | disposition home or self-care (01) ==
LOC: KCIC US 15:02
PROVIDERS: ATTEND Family Medicine
DX: Z34.03 Encounter for supervision of normal first pregnancy, third trimester (principal); Z3A.31 31 weeks gestation of pregnancy
CPT/HCPCS: 76805